=== PATIENT | male | born 1955 | race Caucasian/White ===

== ENCOUNTER 2016-07-17 09:09 | Emergency (ER) | payer OTHER | END 2016-07-17 11:09 | disposition home or self-care (01) | LOC: ER 09:09 | DX: M62.838 Other muscle spasm (principal); I10 Essential (primary) hypertension; F17.210 Nicotine dependence, cigarettes, uncomplicated; X50.9XXA Other and unspecified overexertion or strenuous movements or postures, initial encounter; Y92.009 Unspecified place in unspecified non-institutional (private) residence as the place of occurrence of the external cause; Z79.899 Other long term (current) drug therapy | CPT/HCPCS: 96372; J1885 ==

== ENCOUNTER 2016-08-14 17:47 | Emergency (ER) | payer OTHER | END 2016-08-14 18:35 | disposition left against medical advice (07) | LOC: ER 17:47 | DX: Z53.21 Procedure and treatment not carried out due to patient leaving prior to being seen by health care provider (principal) ==